=== PATIENT | female | born 1955 | race Caucasian/White ===

== ENCOUNTER 2016-05-18 08:36 | Day surgery (SDC) | payer BC ==
--- NOTE | ~2016-05-18 | EGD ---
EGD REPORT [facility] [address] [place] [address] NAME: NOAM TALBERT : [birth year] STATUS : REG [facility]#: [id number] AGE: 61 ADM/REG DATE : 05/18/16 MR#: [id number] REPORT SERV DATE: 05/18/16 DICTATED BY: SANAZ HSU DATE: 05/18/16 REPORT STATUS : Draft TRANSCRIBED BY: [employer] DATE: 05/18/16 [facility] Patient Name: Noam Talbert Date of : 1955 Attending MD: SANAZ HSU MD Procedure Date No Time: 05/18/2016 Procedure: Upper GI endoscopy Indications: Cirrhosis rule out esophageal varices Referring MD: HOMER GARCIA MD Medicines: See the Anesthesia note for documentation of the administered medications Complications: No immediate complications. Procedure: Pre-Anesthesia Assessment: - ASA Grade Assessment: III - A patient with severe systemic disease. After obtaining informed consent, the endoscope was passed under direct vision. Throughout the procedure, the patient's blood pressure, pulse, and oxygen saturations were monitored continuously. The GIF [id number] was introduced through the mouth, and advanced to the jejunum. The upper GI endoscopy was accomplished without difficulty. The patient tolerated the procedure well. Findings: One non-bleeding ulcer with no stigmata of bleeding was found in the jejunum. The lesion was 5 mm in largest dimension. Biopsies were taken with a cold forceps for histology. Normal gastric bypass anatomy A 3 cm hiatus hernia was present. No varices There were esophageal mucosal changes suspicious for short-segment Will's esophagus present in the lower third of the esophagus. The maximum longitudinal extent of these mucosal changes was 1 cm in length. Biopsies were taken with a cold forceps for histology. Impression: - Jejunal ulcer with clean base. Biopsied. - Normal gastric bypass anatomy - Hiatus hernia. - No varices - Esophageal mucosal changes suspicious for short-segment Will's esophagus. Biopsied. Recommendation: - Patient has a contact number available for emergencies. The signs and symptoms of potential delayed EGD REPORT [address] [place]. [address] NAME: NOAM TALBERT : [birth year] STATUS : REG [facility] [place] PAT#: [id number] AGE: 61 ADM/REG DATE : 05/18/16 MR#: [id number] REPORT SERV DATE: 05/18/16 DICTATED BY: SANAZ HSU DATE: 05/18/16 REPORT STATUS : Draft TRANSCRIBED BY: [employer] DATE: 05/18/16 complications were discussed with the patient. Return to normal activities tomorrow. Written discharge instructions were provided to the patient. - Regular diet. - Continue present medications. - Repeat the upper endoscopy in 3 years. - FOR YOUR BIOPSY RESULTS: Please go to [email or web address] and register to receive your results via the portal. Your biopsy results will be posted there in about 7 to 10 days. IF you do not see result in 10 days, call office. Procedure Code(s): --- Professional --- 34817, Esophagogastroduodenoscopy, flexible, transoral; with biopsy, single or multiple Diagnosis Code(s): --- Professional --- K28.9, Gastrojejunal ulcer, unspecified as acute or chronic, without hemorrhage or perforation K22.9, Disease of esophagus, unspecified K44.9, Diaphragmatic hernia without obstruction or gangrene K74.60, Unspecified cirrhosis of liver CPT copyright 2013 [employer]. All rights reserved. The codes documented in this report are preliminary and upon implementation project coordinator review may be revised to meet current compliance requirements. Sanaz Hsu MD SANAZ HSU MD 05/18/2016 10:22 AM This report has been signed electronically. Number of Addenda: 0 Note Initiated On: 05/18/2016 10:05 AM Scope Withdrawal Time 0 hours 0 minutes 0 seconds [address] [place] [address]
[~2016-05-18 08:36] MED LIST: ADVAIR250 INH; AMITIZA8 MCG PO; ASABAYER PO; CARTIA XT240 MG/24 PO; CELEXA40 MG PO; CITRACAL PO; CO Q-10100 MG PO; CYMBALTA30 PO; DARVOCET-N50 MG PO; FLECTOR1.3 % TOP; FLEX PO; FLONASE NAS; GLUCOPHAGE1000 MG PO; L40 PO; LEVOTHYROXIN125 MCG PO; LEVOTHYROXIN137 MCG PO; LUNESTA3 MG PO; LYRICA75 PO; MULTIVIT/MIN PO; PRAV10 PO; PRILOSEC40 MG PO; Proair Hfa; SEE COMMENTS; SYN.15 PO; ULTRAM50 PO; VIBRATAB100 MG PO; VITAMIN B-121000 MC1 SL; VITE PO; [UNRECOGNIZED DRUG - OTHER]; [UNRECOGNIZED DRUG - OTHER] PO
== END 2016-05-18 23:59 | disposition home or self-care (01) ==
LOC: DMU 08:36
PROVIDERS: Internal Medicine Gastroenterology
PROC: 0DB38ZX Excision of Lower Esophagus, Via Natural or Artificial Opening Endoscopic, Diagnostic (ICD-10-PCS; 2016-05-18)
PROC: 0DBA8ZX Excision of Jejunum, Via Natural or Artificial Opening Endoscopic, Diagnostic (ICD-10-PCS; principal; 2016-05-18 10:00)
DX: K22.9 Disease of esophagus, unspecified (principal); K44.9 Diaphragmatic hernia without obstruction or gangrene; K28.9 Gastrojejunal ulcer, unspecified as acute or chronic, without hemorrhage or perforation; J45.909 Unspecified asthma, uncomplicated; E11.9 Type 2 diabetes mellitus without complications; K74.60 Unspecified cirrhosis of liver; F32.9 Major depressive disorder, single episode, unspecified; G47.33 Obstructive sleep apnea (adult) (pediatric); I10 Essential (primary) hypertension; M19.90 Unspecified osteoarthritis, unspecified site; G62.9 Polyneuropathy, unspecified; Z88.0 Allergy status to penicillin; Z88.6 Allergy status to analgesic agent; Z90.49 Acquired absence of other specified parts of digestive tract; Z98.84 Bariatric surgery status; Z98.890 Other specified postprocedural states
CPT/HCPCS: 82962; 88305